=== PATIENT | male | born 1965 | race African-American/Black ===

== ENCOUNTER 2018-08-29 04:11 | Inpatient (IN) | payer MEDICARE, MEDICAID ==
[2018-08-29] VITALS (8 sets, daily range): BP systolic 157–190; BP diastolic 89–119
[~2018-08-29] VITALS: Ht 158.8 cm; Wt 92.2 kg
[~2018-08-29 04:11] MED LIST: DIOVAN; ENALAPRIL; INSULIN; NORCO
[2018-08-29] MEDS ORDERED: ALBUTEROL (0.083%) 2.5MG/3ML NEB HHN STA (06:42)
[2018-08-29] MEDS ORDERED: IPRATROPIUM BROMIDE (0.02%) 0.5MG/2.5ML NEB HHN STA (06:42)
[2018-08-29] MEDS ORDERED: FUROSEMIDE 40MG/4ML VIAL IV ONE (06:45)
[2018-08-29] MEDS ORDERED: ENALAPRIL 2.5MG/2ML VIAL 2ML IV ONE (06:45)
[2018-08-29] MEDS ORDERED: NITROGLYCERIN OINT 1GM/INCH UDPKT TD ONE (08:15)
[2018-08-29 08:16] LABS: CHLORIDE 105 mEq/L (98-107)
[2018-08-29] MEDS ORDERED: LABETALOL 5MG/ML SYR 20 MG/4 ML SYRINGE IV ONE (08:30)
[2018-08-29] MEDS ORDERED: ENOXAPARIN 40MG/0.4ML SYR SUBCUT SCH (08:45)
[2018-08-29] MEDS ORDERED: DIPHENHYDRAMINE 50MG/ML VIAL IV PRN (08:45)
[2018-08-29] MEDS ORDERED: NA PHOS,M-B/NA PHOS,DI-BA ENEMA 118ML PR PRN (08:45)
[2018-08-29] MEDS ORDERED: MORPHINE SULFATE 4 MG/ML CPJ (NOT FOR IM USE) IV PRN (08:45)
[2018-08-29] MEDS ORDERED: GUAIFENESIN 200MG/10ML SUGAR FREE UDC PO PRN (08:45)
[2018-08-29] MEDS ORDERED: IPRATROPIUM/ALBUTEROL 0.5-3(2.5)MG/3ML NEB INH PRN (08:45)
[2018-08-29] MEDS ORDERED: MAGNESIUM/ALUMINUM HYDROXIDE/SIMETHICONE 30ML UDC PO PRN (08:45)
[2018-08-29] MEDS ORDERED: DOCUSATE SODIUM 100MG CAPSULE PO PRN (08:45)
[2018-08-29] MEDS ORDERED: LORAZEPAM 2MG/ML CPJ IV PRN (08:45)
[2018-08-29] MEDS ORDERED: ONDANSETRON HCL 4MG/2ML INJ IV PRN (08:45)
[2018-08-29] MEDS ORDERED: LABETALOL HCL 20MG/4ML CARPUJECT IV ONE (08:45)
[2018-08-29 09:16] LABS: HEMATOCRIT. 24.7 % (42.0-52.0); HEMOGLOBIN. 7.8 g/dL (14.0-18.0); MEAN CORPUSCULAR HEMOGLOBIN 27.7 pg (28.0-32.0); MEAN PLATELET VOLUME 8.9 fl (7.4-10.4); PLATELET 410 x1000/uL (130-400)
[2018-08-29] MEDS: FUROSEMIDE 40MG/4ML VIAL IV SCH (09:34)
[2018-08-29] MEDS: ASPIRIN 81MG EC TABLET PO SCH (09:34)
[2018-08-29] MEDS: CLONIDINE 0.1MG TABLET PO PRN ×2 (09:35→18:23)
[2018-08-29 10:09] LABS: NUCLEATED RED BLOOD CELLS 1 /100 WBC; PLATELET ESTIMATE INCREASED
[2018-08-29] MEDS: INSULIN REGULAR (HUMULIN R) 300UNITS/3ML IV ONE ×2 (10:24→10:34)
[2018-08-29] MEDS ORDERED: P20 MT (11:31)
[2018-08-29] MEDS ORDERED: OMEP20CA10 MT (11:32)
[2018-08-29] MEDS ORDERED: VALS160T28 MT (11:32)
[2018-08-29 11:33] LABS: D-DIMER 3.46 mg/L FEU (<0.50); INR 1.1; PARTIAL THROMBOPLASTIN TIME 27.3 sec (23.4-31.0)
[2018-08-29] MEDS ORDERED: PREG75CA MT (11:34)
[2018-08-29] MEDS ORDERED: CLON0.2T MT (11:35)
[2018-08-29] MEDS ORDERED: FURO40TA5 PO (11:35)
[2018-08-29] MEDS ORDERED: HYDRALAZINE 20MG/ML VIAL IV NR (12:00)
[2018-08-29] MEDS: ENOXAPARIN 40MG/0.4ML SYR SUBCUT SCH ×2 (12:00→14:17)
[2018-08-29] MEDS ORDERED: DEXTROSE 50% WATER 50ML SYRINGE IV PRN (12:30)
[2018-08-29] MEDS: BLOOD SUGAR DIAGNOSTIC STRIP TEST SCH ×3 (12:43→21:11)
[2018-08-29] MEDS: INSULIN LISPRO 100 UNITS/ML SUBCUT SCH ×3 (13:21→21:00)
[2018-08-29] MEDS: AMLODIPINE 5MG TABLET PO SCH (14:17)
[2018-08-29 14:42] LABS: CANNABINOID URINE SCREEN PRESUMTIVE POSITIVE (NEGATIVE); METHADONE URINE SCREEN NEGATIVE (NEGATIVE); OPIATES URINE SCREEN NEGATIVE (NEGATIVE); PHENCYCLIDINE URINE SCREEN NEGATIVE (NEGATIVE)
[2018-08-29 14:43] LABS: *AMPHETAMINES SCREEN URINE NEGATIVE (NEGATIVE); *BARBITURATES SCREEN URINE NEGATIVE (NEGATIVE); *BENZODIAZEPINES SCREEN URINE NEGATIVE (NEGATIVE); *COCAINE SCREEN URINE NEGATIVE (NEGATIVE)
[2018-08-29 15:37] LABS: CHLORIDE 104 mEq/L (98-107)
[2018-08-29 15:46] LABS: CREATINE KINASE 675 IU/L (39-308)
[2018-08-29 15:48] LABS: CREATINE KINASE MB FRACTION 8.2 ng/mL (0.5-3.6)
[2018-08-29] MEDS: SODIUM CHLORIDE 0.45% 1,000 ML IV SCH (19:11)
[2018-08-29] MEDS ORDERED: SODIUM POLYSTYRENE SULFONATE 15 G/60 ML BOT PO NR (20:00)
[2018-08-29] MEDS: LEVOFLOXACIN 500MG PREMIX 100 ML IV SCH (21:11)
[2018-08-29 22:02] LABS: CLARITY URINE CLEAR (CLEAR); COLOR URINE YELLOW (YELLOW); KETONES URINE NEGATIVE (NEGATIVE); LEUKOCYTE ESTERASE URINE NEGATIVE (NEGATIVE); NITRITE URINE NEGATIVE (NEGATIVE); OCCULT BLOOD URINE 1+ (NEGATIVE); PH URINE 6.5 (4.5-8.0); PROTEIN URINE 4+ (NEGATIVE); SPECIFIC GRAVITY URINE 1.012 (1.005-1.030); UROBILINOGEN URINE 0.2 E.U./dL (0.2-1.0)
[2018-08-29 22:54] LABS: CREATINE KINASE MB FRACTION 5.9 ng/mL (0.5-3.6)
[2018-08-30] VITALS (16 sets, daily range): BP systolic 165–190; BP diastolic 88–115
[2018-08-30] MEDS: CLONIDINE 0.1MG TABLET PO PRN ×3 (01:20→22:01)
[2018-08-30] MEDS: ACETAMINOPHEN 325MG TABLET PO PRN ×2 (04:01→12:34)
[2018-08-30 07:16] LABS: MEAN CORPUSCULAR HEMOGLOBIN 27.9 pg (28.0-32.0); MEAN CORPUSCULAR VOLUME 85.2 fL (80.0-94.0); PLATELET 343 x1000/uL (130-400); RED BLOOD CELL COUNT 2.36 mill/uL (4.7-6.1); RED CELL DISTRIBUTION WIDTH 15.7 % (11.6-14.6)
[2018-08-30 07:20] LABS: CHLORIDE 107 mEq/L (98-107)
[2018-08-30 07:36] LABS: HDL CHOLESTEROL 60 mg/dL (40-59); LDL CHOLESTEROL 143 mg/dL (5-100)
[2018-08-30] MEDS: BLOOD SUGAR DIAGNOSTIC STRIP TEST SCH ×4 (07:36→21:00)
[2018-08-30 07:40] LABS: HAPTOGLOBIN 172 mg/dL (30-200)
[2018-08-30 07:41] LABS: CREATINE KINASE 484 IU/L (39-308); CREATINE KINASE MB FRACTION 4.9 ng/mL (0.5-3.6); T4 FREE 1.35 ng/dL (0.76-1.46)
[2018-08-30] MEDS: FUROSEMIDE 40MG/4ML VIAL IV SCH (08:19)
[2018-08-30] MEDS: AMLODIPINE 5MG TABLET PO SCH (08:20)
[2018-08-30] MEDS: ASPIRIN 81MG EC TABLET PO SCH (08:20)
[2018-08-30] MEDS: SODIUM CHLORIDE 0.45% 1,000 ML IV SCH (08:21)
[2018-08-30] MEDS: INSULIN LISPRO 100 UNITS/ML SUBCUT SCH ×4 (08:21→22:02)
[2018-08-30 09:34] LABS: HEMATOCRIT. 20.1 % (42.0-52.0); HEMOGLOBIN. 6.6 g/dL (14.0-18.0)
[2018-08-30] MEDS ORDERED: LIDOCAINE HCL 1% 20ML VIAL (Pyxis) INJ ONE (10:18)
[2018-08-30 11:05] LABS: BG BASE EXCESS -5.5 mmol/L (-2.0-2.0); BG CARBOXYHEMOGLOBIN 0.3 % (0.5-1.5); BG DEOXYHEMOGLOBIN 7.8 % (0.0-5.0); BG FRACTION INSPIRED OXYGEN 28; BG HCO3 ACT 17.6 mmol/L (22.0-26.0); BG METHEMOGLOBIN 1.1 % (0.0-1.5); BG OXYGEN SATURATION 92.1 % (92.0-98.5); BG OXYHEMOGLOBIN 90.8 % (94.0-97.0); BG PCO2 25.9 mmHg (35.0-45.0); BG PH 7.451 (7.350-7.450); BG PO2 66.3 mmHg (75.0-100.0); BG SAMPLE SITE LEFT RADIAL; BG TOTAL HEMOGLOBIN 7.7 g/dL (12.0-18.0); BG VENT MODE NASAL CANNULA
[2018-08-30 12:16] LABS: HEPATITIS B SURFACE ANTIGEN NEGATIVE
[2018-08-30 12:46] LABS: HEPATITIS A AB IGM NEGATIVE (NEGATIVE)
[2018-08-30 18:42] LABS: PLATELET ESTIMATE NORMAL
[2018-08-30 21:00] LABS: HEMATOCRIT 28.7 % (42.0-52.0); HEMOGLOBIN 9.5 g/dL (14.0-18.0); MEAN CORPUSCULAR HEMOGLOBIN 28.5 pg (28.0-32.0); MEAN CORPUSCULAR VOLUME 85.8 fL (80.0-94.0); PLATELET 341 x1000/uL (130-400); RED BLOOD CELL COUNT 3.34 mill/uL (4.7-6.1); RED CELL DISTRIBUTION WIDTH 15.6 % (11.6-14.6)
[2018-08-31] VITALS (12 sets, daily range): BP systolic 160–187; BP diastolic 91–113
[2018-08-31] MEDS: CLONIDINE 0.1MG TABLET PO PRN ×3 (05:38→22:06)
[2018-08-31 07:15] LABS: BASOPHILS % 0.6 % (0.0-2.0); EOSINOPHILS % 0.5 % (0.0-5.0); HEMATOCRIT. 25.7 % (42.0-52.0); HEMOGLOBIN. 8.7 g/dL (14.0-18.0); LYMPHOCYTES % 11.2 % (20.0-50.0); MEAN CORPUSCULAR VOLUME 85.8 fL (80.0-94.0); MEAN PLATELET VOLUME 8.3 fl (7.4-10.4); MONOCYTES % 6.5 % (2.0-8.0); NEUTROPHILS % 81.2 % (40.0-76.0); PLATELET 304 x1000/uL (130-400); RED CELL DISTRIBUTION WIDTH 15.2 % (11.6-14.6)
[2018-08-31] MEDS: BLOOD SUGAR DIAGNOSTIC STRIP TEST SCH ×4 (08:38→21:00)
[2018-08-31] MEDS: FUROSEMIDE 40MG/4ML VIAL IV SCH (08:54)
[2018-08-31] MEDS: ASPIRIN 81MG EC TABLET PO SCH (08:54)
[2018-08-31] MEDS: AMLODIPINE 5MG TABLET PO SCH (08:54)
[2018-08-31] MEDS: INSULIN LISPRO 100 UNITS/ML SUBCUT SCH ×4 (09:01→22:07)
[2018-08-31 09:09] LABS: IMMUNOGLOBULIN A 326 mg/dL (90-386); IMMUNOGLOBULIN G 1008 mg/dL (700-1600); IMMUNOGLOBULIN M 40 mg/dL (20-172)
[2018-08-31] MEDS: HYDRALAZINE HCL 25MG TABLET PO SCH ×2 (14:46→20:39)
[2018-08-31] MEDS ORDERED: LOSARTAN POTASSIUM 50 MG TABLET PO SCH (18:00)
[2018-08-31] MEDS: CARVEDILOL 3.125 MG TABLET PO SCH (20:39)
[2018-08-31] MEDS: LEVOFLOXACIN 500MG PREMIX 100 ML IV SCH (20:40)
[2018-08-31] MEDS: CLONIDINE 0.1MG TABLET PO SCH (22:06)
[2018-09-01] VITALS (14 sets, daily range): BP systolic 146–190; BP diastolic 73–118
[2018-09-01 06:35] LABS: BASOPHILS % 0.7 % (0.0-2.0); EOSINOPHILS % 0.9 % (0.0-5.0); HEMOGLOBIN. 8.7 g/dL (14.0-18.0); MEAN CORPUSCULAR HEMOGLOBIN 28.8 pg (28.0-32.0); MEAN CORPUSCULAR VOLUME 85.7 fL (80.0-94.0); MEAN PLATELET VOLUME 8.3 fl (7.4-10.4); MONOCYTES % 8.1 % (2.0-8.0); NEUTROPHILS % 76.3 % (40.0-76.0); PLATELET 321 x1000/uL (130-400); RED BLOOD CELL COUNT 3.03 mill/uL (4.7-6.1); RED CELL DISTRIBUTION WIDTH 15.1 % (11.6-14.6)
[2018-09-01] MEDS: HYDRALAZINE HCL 25MG TABLET PO SCH ×3 (06:47→21:31)
[2018-09-01] MEDS: CLONIDINE 0.1MG TABLET PO SCH ×3 (06:47→21:31)
[2018-09-01] MEDS: BLOOD SUGAR DIAGNOSTIC STRIP TEST SCH ×4 (08:03→21:21)
[2018-09-01] MEDS: AMLODIPINE 5MG TABLET PO SCH (08:11)
[2018-09-01] MEDS: FUROSEMIDE 40MG/4ML VIAL IV SCH (08:11)
[2018-09-01] MEDS: LOSARTAN POTASSIUM 25 MG TABLET PO SCH (08:12)
[2018-09-01] MEDS: ASPIRIN 81MG EC TABLET PO SCH (08:12)
[2018-09-01] MEDS: CARVEDILOL 3.125 MG TABLET PO SCH ×2 (08:12→21:31)
[2018-09-01] MEDS: INSULIN LISPRO 100 UNITS/ML SUBCUT SCH ×4 (08:30→21:34)
[2018-09-02] VITALS (21 sets, daily range): BP systolic 135–182; BP diastolic 76–101
[2018-09-02] MEDS: CLONIDINE 0.1MG TABLET PO SCH ×2 (06:28→14:43)
[2018-09-02] MEDS: HYDRALAZINE HCL 25MG TABLET PO SCH ×2 (06:28→14:43)
[2018-09-02 07:15] LABS: BASOPHILS % 0.6 % (0.0-2.0); EOSINOPHILS % 1.5 % (0.0-5.0); HEMATOCRIT. 30.1 % (42.0-52.0); LYMPHOCYTES % 18.2 % (20.0-50.0); MEAN CORPUSCULAR HEMOGLOBIN 28.9 pg (28.0-32.0); MEAN CORPUSCULAR VOLUME 87.5 fL (80.0-94.0); MEAN PLATELET VOLUME 8.2 fl (7.4-10.4); MONOCYTES % 7.2 % (2.0-8.0); NEUTROPHILS % 72.5 % (40.0-76.0); PLATELET 370 x1000/uL (130-400); RED BLOOD CELL COUNT 3.44 mill/uL (4.7-6.1); RED CELL DISTRIBUTION WIDTH 15.2 % (11.6-14.6)
[2018-09-02] MEDS: BLOOD SUGAR DIAGNOSTIC STRIP TEST SCH ×2 (07:30→12:50)
[2018-09-02] MEDS ORDERED: SODIUM BICARBONATE 4% (2.4MEQ) 5ML VIAL IV ONE (07:36)
[2018-09-02] MEDS ORDERED: LIDOCAINE HCL 1% 20ML VIAL (Pyxis) INJ ONE (07:37)
[2018-09-02] MEDS ORDERED: HEPARIN 1000 UNITS/ML 10ML ONE (07:37)
[2018-09-02] MEDS ORDERED: FENTANYL CITRATE/PF 50MCG/ML 2ML VIAL ONE (07:56)
[2018-09-02] MEDS: INSULIN LISPRO 100 UNITS/ML SUBCUT SCH ×3 (08:00→15:19)
[2018-09-02] MEDS ORDERED: FENTANYL CITRATE/PF 50MCG/ML 2ML VIAL IV ONE (08:30)
[2018-09-02] MEDS: ASPIRIN 81MG EC TABLET PO SCH (09:00)
[2018-09-02] MEDS: FUROSEMIDE 40MG/4ML VIAL IV SCH (09:38)
[2018-09-02] MEDS: CARVEDILOL 3.125 MG TABLET PO SCH (09:39)
[2018-09-02] MEDS: AMLODIPINE 5MG TABLET PO SCH (09:39)
[2018-09-02] MEDS: LOSARTAN POTASSIUM 25 MG TABLET PO SCH (09:39)
[2018-09-02] MEDS: HYDROCODONE/ACETAMINOPHEN 5/325MG TABLET PO PRN ×2 (11:10→12:22)
[2018-09-02] MEDS: CLONIDINE 0.1MG TABLET PO PRN (11:11)
== END 2018-09-02 16:20 | disposition home or self-care (01) | DRG 280 ==
LOC: ER 04:11 → 5EST 08:19 → EDBEDREQ 08:24 → EDBEDREQSVC 08:24 → ENRESERV 09:16 → 5EST 08-30 09:30
PROVIDERS: ADMIT Internal Medicine; ATTEND Internal Medicine
PROC: 02HV33Z Insertion of Infusion Device into Superior Vena Cava, Percutaneous Approach (ICD-10-PCS; principal; 2018-08-30)
PROC: B548ZZA Ultrasonography of Superior Vena Cava, Guidance (ICD-10-PCS; 2018-08-30)
PROC: 30233N1 Transfusion of Nonautologous Red Blood Cells into Peripheral Vein, Percutaneous Approach (ICD-10-PCS; 2018-08-30)
PROC: 5A1D70Z Performance of Urinary Filtration, Intermittent, Less than 6 Hours Per Day (ICD-10-PCS; 2018-08-30)
PROC: 5A1D70Z Performance of Urinary Filtration, Intermittent, Less than 6 Hours Per Day (ICD-10-PCS; 2018-09-01)
PROC: 0JH63XZ Insertion of Tunneled Vascular Access Device into Chest Subcutaneous Tissue and Fascia, Percutaneous Approach (ICD-10-PCS; 2018-09-02)
PROC: 02PYX3Z Removal of Infusion Device from Great Vessel, External Approach (ICD-10-PCS; 2018-09-02)
PROC: 02H633Z Insertion of Infusion Device into Right Atrium, Percutaneous Approach (ICD-10-PCS; 2018-09-02)
PROC: B2141ZZ Fluoroscopy of Right Heart using Low Osmolar Contrast (ICD-10-PCS; 2018-09-02)
DX: I21.4 Non-ST elevation (NSTEMI) myocardial infarction (principal); J96.00 Acute respiratory failure, unspecified whether with hypoxia or hypercapnia; I50.43 Acute on chronic combined systolic (congestive) and diastolic (congestive) heart failure; N18.6 End stage renal disease; N17.9 Acute kidney failure, unspecified; I13.2 Hypertensive heart and chronic kidney disease with heart failure and with stage 5 chronic kidney disease, or end stage renal disease; E46 Unspecified protein-calorie malnutrition; I42.9 Cardiomyopathy, unspecified; E11.22 Type 2 diabetes mellitus with diabetic chronic kidney disease; E11.42 Type 2 diabetes mellitus with diabetic polyneuropathy; E11.319 Type 2 diabetes mellitus with unspecified diabetic retinopathy without macular edema; E78.5 Hyperlipidemia, unspecified; D64.9 Anemia, unspecified; E11.65 Type 2 diabetes mellitus with hyperglycemia; E66.9 Obesity, unspecified; N40.0 Benign prostatic hyperplasia without lower urinary tract symptoms; R04.0 Epistaxis; Z79.899 Other long term (current) drug therapy; Z87.891 Personal history of nicotine dependence; Z99.2 Dependence on renal dialysis; Z68.36 Body mass index [BMI] 36.0-36.9, adult
CPT/HCPCS: 36415; 36558; 36569; 36589; 36600; 71045; 76770; 76937; 77001; 78580; 80048; 80061; 80305; 82375; 82550; 82553; 82575; 82784; 82805; 82962; 83010; 83036; 83605; 83615; 83880; 84145; 84153; 84439; 84443; 84484; 85007; 85027; 85379; 86334; 86705; 86706; 86709; 86803; 86850; 86900; 86920; 87340; 93005; 93306; 93970; 94644; 96374; 96375; 99291; A6261; C1750; C1752; C1887; J0360; J1642; J1644; J1650; J1815; J1940; J1956; J2060; J3010; J3490; J7050; J7611; J7620; P9016; A4315; G0103

== ENCOUNTER 2019-03-23 05:58 | Day surgery (SDC) | payer MEDICARE, MEDICAID ==
[~2019-03-23] VITALS: Ht 188 cm; Wt 83.9 kg
[~2019-03-23 05:58] MED LIST changes: +ASPI-1393 PO; +CLON0.3T PO; -DIOVAN; -ENALAPRIL; +FURO40TA5 PO; +HYDR-4009 PO; +HYDR-4134 PO; +INSU100I33 SQ; -INSULIN; +LORA0.5T2 PO; +METO25TA6 PO; -NORCO; +OMEP20CA5 MT; +PREG75CA MT; +SEVE800T8 PO
[2019-03-23 06:51] LABS: BASOPHILS % 0.8 % (0.0-2.0); HEMATOCRIT. 29.2 % (42.0-52.0); HEMOGLOBIN. 9.7 g/dL (14.0-18.0); LYMPHOCYTES % 23.9 % (20.0-50.0); MEAN CORPUSCULAR HEMOGLOBIN 27.3 pg (28.0-32.0); MEAN CORPUSCULAR VOLUME 82.5 fL (80.0-94.0); MONOCYTES % 8.2 % (2.0-8.0); NEUTROPHILS % 64.1 % (40.0-76.0); PLATELET 267 x1000/uL (130-400); RED BLOOD CELL COUNT 3.54 mill/uL (4.7-6.1); RED CELL DISTRIBUTION WIDTH 20.6 % (11.6-14.6)
[2019-03-23 06:55] LABS: PARTIAL THROMBOPLASTIN TIME 26.9 sec (23.4-31.0)
[2019-03-23] MEDS ORDERED: BACITRACIN 15GM TUBE TOP ONE (07:04)
[2019-03-23] MEDS ORDERED: THROMBIN (BOVINE) 5000 UNITS/VIAL TOP ONE (07:05)
[2019-03-23] MEDS ORDERED: LIDOCAINE HCL 1% 20ML VIAL (Pyxis) INJ ONE (07:05)
[2019-03-23] MEDS ORDERED: SKIN ADHESIVE 0.7 GM EA TOP ONE (07:05)
[2019-03-23] MEDS ORDERED: BACITRACIN 50,000 UNITS/VIAL ONE (07:06)
[2019-03-23] MEDS ORDERED: HEPARIN SODIUM 1,000 UNIT/1ML VIAL IV ONE ×3 (07:06→10:30)
[2019-03-23] MEDS ORDERED: BUPIVACAINE HCL/PF 0.5% (5MG/ML) 10ML ONE (07:06)
[2019-03-23] MEDS ORDERED: NORMAL SALINE 0.9% 10 ML SYR ONE (07:06)
[2019-03-23] MEDS ORDERED: INSULIN LISPRO 100 UNITS/ML SUBCUT ONE (07:15)
[2019-03-23] MEDS ORDERED: MIDAZOLAM HCL 2 MG/2 ML VIAL ONE (07:26)
[2019-03-23] MEDS ORDERED: MIDAZOLAM HCL 5 MG/5 ML VIAL ONE (07:26)
[2019-03-23] MEDS ORDERED: PROPOFOL 200MG/20ML VIAL IV ONE (07:26)
[2019-03-23] MEDS ORDERED: FENTANYL CITRATE/PF 50MCG/ML 2ML VIAL ONE (07:26)
[2019-03-23] MEDS ORDERED: LIDOCAINE HCL/PF 1% 10 MG/ML 5ML VIAL ONE ×2 (07:29→07:40)
[2019-03-23] MEDS ORDERED: ROPIVACAINE HCL 10MG/ML 20 ML VIAL EPI ONE (07:34)
[2019-03-23] MEDS ORDERED: SODIUM CHLORIDE 0.9% 500 ML IV NR (08:30)
[2019-03-23] MEDS ORDERED: CEFAZOLIN SODIUM 1000MG/VIAL ONE (08:31)
[2019-03-23] MEDS ORDERED: HYDRALAZINE 20MG/ML VIAL ONE (08:31)
[2019-03-23] MEDS ORDERED: HYDRALAZINE 20MG/ML VIAL IV PRN (09:45)
[2019-03-23] MEDS ORDERED: METOCLOPRAMIDE HCL 10MG/2ML VIAL IV PRN (09:45)
[2019-03-23] MEDS ORDERED: FENTANYL CITRATE/PF 50MCG/ML 2ML VIAL IV PRN (09:45)
[2019-03-23] MEDS ORDERED: ONDANSETRON HCL 4MG/2ML INJ IV PRN (09:45)
== END 2019-03-23 10:40 | disposition home or self-care (01) ==
LOC: OR 05:58
PROVIDERS: ATTEND Surgery Vascular Surgery
DX: I13.2 Hypertensive heart and chronic kidney disease with heart failure and with stage 5 chronic kidney disease, or end stage renal disease (principal); E11.22 Type 2 diabetes mellitus with diabetic chronic kidney disease; N18.6 End stage renal disease; I50.9 Heart failure, unspecified; D64.9 Anemia, unspecified; I42.9 Cardiomyopathy, unspecified; E78.00 Pure hypercholesterolemia, unspecified; Z79.82 Long term (current) use of aspirin; Z79.4 Long term (current) use of insulin; Z79.899 Other long term (current) drug therapy; Z84.1 Family history of disorders of kidney and ureter; Z98.890 Other specified postprocedural states
CPT/HCPCS: 36415; 36821; 64415; 80048; 82962; 85025; 85610; 85730; 93005; J0360; J0690; J1644; J1815; J2250; J2704; J2795; J3010; J3490; J7040

== ENCOUNTER 2019-05-17 14:37 | Emergency (ER) | payer MEDICARE ==
[~2019-05-17] VITALS: Ht 190.5 cm; Wt 82.0 kg
[~2019-05-17 14:37] MED LIST changes: -PREG75CA MT
[2019-05-17] MEDS ORDERED: ACETAMINOPHEN 325MG TABLET PO STA (14:52)
[2019-05-17] MEDS ORDERED: SODIUM CHLORIDE 0.9% 1000ML BAG (SEPSIS BOLUS) IV ONE (15:00)
[2019-05-17 15:46] LABS: CHLORIDE 102 mEq/L (98-107)
[2019-05-17 15:52] LABS: BASOPHILS % 0.8 % (0.0-2.0); EOSINOPHILS % 2.6 % (0.0-5.0); HEMATOCRIT. 31.1 % (42.0-52.0); HEMOGLOBIN. 10.3 g/dL (14.0-18.0); LYMPHOCYTES % 24.2 % (20.0-50.0); MEAN CORPUSCULAR HEMOGLOBIN 30.1 pg (28.0-32.0); MEAN CORPUSCULAR VOLUME 90.3 fL (80.0-94.0); MEAN PLATELET VOLUME 7.9 fl (7.4-10.4); MONOCYTES % 10.4 % (2.0-8.0); PLATELET 275 x1000/uL (130-400); RED BLOOD CELL COUNT 3.44 mill/uL (4.7-6.1); RED CELL DISTRIBUTION WIDTH 16.6 % (11.6-14.6)
[2019-05-17] MEDS ORDERED: CLONIDINE 0.3MG TABLET PO ONE (16:15)
[2019-05-17] MEDS ORDERED: METOPROLOL TARTRATE 25MG TABLET PO ONE (16:15)
[2019-05-17] MEDS ORDERED: HYDRALAZINE HCL 25MG TABLET PO ONE (16:30)
[2019-05-17] MEDS ORDERED: LABETALOL 5MG/ML SYR 20 MG/4 ML SYRINGE IV ONE (17:15)
[2019-05-17 20:38] VITALS: BP 162/68
== END 2019-05-17 20:38 | disposition home or self-care (01) ==
LOC: ER 14:37 → EDBEDREQ 18:27 → ENRESERV 20:15 → CANRESERV 20:15 → ER 20:38 → CANBEDREQ 21:04
DX: I16.0 Hypertensive urgency (principal); I13.2 Hypertensive heart and chronic kidney disease with heart failure and with stage 5 chronic kidney disease, or end stage renal disease; I50.9 Heart failure, unspecified; E11.22 Type 2 diabetes mellitus with diabetic chronic kidney disease; N18.6 End stage renal disease; Z99.2 Dependence on renal dialysis; Z79.84 Long term (current) use of oral hypoglycemic drugs; Z79.899 Other long term (current) drug therapy
CPT/HCPCS: 36415; 71045; 80053; 83605; 84145; 85025; 87040; 93005; 99291; J7030